=== PATIENT | female | born 1990 | race Caucasian/White ===

== ENCOUNTER 2024-10-29 11:13 | Inpatient (IN) ==
[2024-10-29] MEDS ORDERED: LIDOCAINE 1% LOCAL 20 ML VIAL INFIL PRN (11:28)
[2024-10-29] MEDS ORDERED: OXYTOCIN 30 UNITS/NSS 30 UNITS/500 ML BAG IV PRN ×2 (11:28→20:57)
--- NOTE | 2024-10-29 11:41 | History & Physical Report ---
Date of Service October 29, 2024 Assessment & Plan (1) ROM (rupture of membranes), premature: (2) with 38 completed weeks gestation: Plan admit. some contractions, but not alot or painful. gross rom. fetus category one. Discussed expectant management vs. starting pitocin now, they choose the latter. Anticipate . History of Present Illness Chief Complaint: rom Primary Care Provider: ASHLEY Vaughn Patient is a 33yowf G1 with iup at 38 3/7 weeks who presents to labor and delivery after going to the office where they confirmed rom. Notes large gush of fluid at 8:45 am, clear. +fm. and Delivery Plans Need for Rhogam d/t Rh negative blood *Given 08/23 OB Labs: Blood Type A Negative 04/15/24 Antibody Screen NEGATIVE 08/23/24 Hgb 12.5 g/dl (12.0-16.0) 08/23/24 Hct 35.8 % (37.0-47.0) L 08/23/24 MCV 96.6 fL (80.0-100.0) 04/15/24 Plt Count 174 K/uL (130-400) 04/15/24 Rubella IgG Antibody Immune (Immune) 04/15/24 Treponema pallidum Ab Negative (Negative) 08/23/24 Hep Bs Antigen Negative (Negative) 04/15/24 Hepatitis C Antibody Negative (Negative) 04/15/24 HIV 1&2 Ab/P24 Ag 4thGn Negative (Negative) 04/15/24 Glucose 1 Hr 50 gm 105 mg/dl (70-130) 08/23/24 Maternal Serum AFP 27.3 ng/mL 05/27/24 OB Optional Labs: Chlamydia trachomatis RNA Not Detected (NotDetected) 04/12/24 Neisseria gonorrhoeae RNA Not Detected (NotDetected) 04/12/24 Thyroid Stimulating Hormone (TSH) 1.690 uIu/ml (0.300-4.500) 09/21/22 Alpha Fetoprotein Triple Screen SEE NOTE 05/27/24 Labs Reviewed: carrier screening-negative--mln cfdna-low risk--mln neg afp - sln gbs neg--akh Allergies Allergy/AdvReac Type Severity Reaction Status Date / Time Penicillins Allergy Severe Anaphylaxis Verified 10/29/24 12:10 Home Medications Medication Instructions Recorded Confirmed Type digital therapeutic,ELEANOR device #1 ea 08/15/24 10/29/24 Rx clobetasol 0.05 % topical cream 1 applic topical DAILY PRN eczema 10/07/24 10/29/24 Rx #45 grams vits no.124-ferrous fum 1 tab PO DAILY 10/29/24 10/29/24 History 27 mg iron-folic acid 800 mcg tablet ( Vitamin) Patient History Medical History Abnormal Pap smear of cervix Varicella vaccination Migraine Allergic rhinitis Vitamin D deficiency Surgical History Status post colposcopy History of oral surgery 2 teeth removed from gum Family History Other No pertinent family history Denies family history of Ovarian cancer Prostate cancer Diabetes Coronary heart disease Dementia Heart disease Myocardial infarction Breast cancer Lung cancer Colorectal cancer Hypertension Colonic polyp Stroke Social History Smoking Status: Never smoker Second Hand Exposure: No; Do You Dip or Chew Tobacco: No; Hx Alcohol Use: No Hx Substance Use: No Preferred Language: Azeri Communication Ability: Effective Visual Impairment: No Limitations Hearing Ability: Normal Metal Fabricating Inspector Required: No Beliefs That Will Affect Care: None marital status: marital status details: Julienne Taylor (50) [phone] Current Living Situation: Spouse Current Living Situation Comment: current occupational status: unemployed How many Children do You have: 0 Other Information That Helps Us Care for You: No Feels Safe at Home: Yes Safety Concerns: Feels Safe At This Time Childhood Exposure to Second-Hand Smoke: No Diet: regular caffeine: No Dental Care, Regularly: Yes Physical Activity Frequency: Daily Seatbelt Use: always Sunscreen Use: Yes Assistive Devices: None 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
[2024-10-29 11:59] LABS: Hematocrit (blood only) 37.5 % (37.0-47.0); Hemoglobin 13.5 g/dl (12.0-16.0); Mean Corpuscular Hemoglobin 35.2 pg (25.0-34.0); Mean Corpuscular Volume 97.7 fL (80.0-100.0); Mean Platelet Volume 11.7 fL (9.4-12.4); Platelet Count 141 K/uL (130-400); RDW Standard Deviation 46.4 fL (36.4-46.3); Red Blood Count 3.84 M/uL (4.20-5.40); White Blood Count 10.75 K/ul (4.8-10.8)
[2024-10-29] MEDS: OXYTOCIN 30 UNITS/NSS 30 UNITS/500 ML BAG IV PRN (14:22)
[2024-10-29] MEDS: LACTATED RINGER'S 1,000 ML IV PRN (14:22)
--- NOTE | 2024-10-29 15:48 | Anesthesiology Consultation ---
Date of Service October 29, 2024 Assessment & Plan (1) Encounter for pre-operative examination: Chart Review Chart Review: Acceptable Risk for Labor Epidural History Height/Weight Height: 5 ft 3 in Weight: 63.503 kg Allergies Allergy/AdvReac Type Severity Reaction Status Date / Time Penicillins Allergy Severe Anaphylaxis Verified 10/29/24 12:10 Medications Home Medications Medication Instructions Recorded Confirmed Last Taken digital therapeutic,ELEANOR device #1 ea 08/15/24 10/29/24 Unknown clobetasol 0.05 % topical cream 1 applic topical DAILY PRN eczema 10/07/24 10/29/24 Unknown #45 grams vits no.124-ferrous fum 1 tab PO DAILY 10/29/24 10/29/24 10/28/24 08:00 27 mg iron-folic acid 800 mcg tablet ( Vitamin) Active Medications Generic Name Dose Route Start Last Admin Trade Name Freq PRN Reason Stop Dose Admin Lactated Ringer's 1,000 mls @ 125 mls/hr 10/29/24 11:28 10/29/24 15:40 Lr IV 10/31/24 11:27 999 mls/hr .Q8H PRN Infusion L&D Protocol Protocol Oxytocin 30 units in 500 mls @ 5 mls/hr 10/29/24 14:03 10/29/24 15:30 Pitocin 30 Units/Nss IV 10/31/24 14:02 0.3 units/hr .Q24H PRN 5 mls/hr Labor Induction/Augmentation Titration Protocol 0.3 UNITS/HR Past Medical History Medical History Abnormal Pap smear of cervix Varicella vaccination Migraine Allergic rhinitis Vitamin D deficiency Past Family History Family History Other No pertinent family history Denies family history of Ovarian cancer Prostate cancer Diabetes Coronary heart disease Dementia Heart disease Myocardial infarction Breast cancer Lung cancer Colorectal cancer Hypertension Colonic polyp Stroke Past Surgical History Surgical History Status post colposcopy History of oral surgery 2 teeth removed from gum Social History Smoking Status: Never smoker Do You Dip or Chew Tobacco: No Hx Alcohol Use: No Hx Substance Use: No Physical Exam Vital Signs Last Vital Signs Temp 36.9 C 10/29/24 15:00 Pulse 71 10/29/24 14:52 Resp 20 10/29/24 15:00 BP 111/74 10/29/24 14:52 Testing Laboratory Results 10/29/24 11:39
--- NOTE | 2024-10-29 15:57 | Medical Student H&P ---
Date of Service October 29, 2024 Assessment & Plan (1) with 38 completed weeks gestation: (2) ROM (rupture of membranes), premature: Plan Healthy 33-year-old at 38w3d with confirmed PROM. Reassuring heart tracing (Category I). No signs of labor at this time. No maternal complications or signs of infection. Diagnosis: Prelabor rupture of membranes (PROM) at term with reassuring status. - Anticipate normal spontaneous vaginal delivery () -Initiate Pitocin infusion, titrated beginning at 1 mU/min and escalating every 20 minutes as tolerated. - IV Fluids - Plan for epidural Monitoring: -Continue routine heart rate and contraction monitoring. Assess for signs of infection, distress, or labor progression. Maintain regular assessments of maternal vitals and pain level. Medications Administered or Active: Pitocin active, for labor induction. Lactated Ringers active, for IV hydration. Continue supportive care and monitoring throughout labor. Admission and Anticipated Discharge Date Admission Date: October 29, 2024 History of Present Illness Chief Complaint: PROM Primary Care Provider: ASHLEY Vaughn Lillian is a 33-year-old female w PMH of migraines at 72v3qms reliable LMP, presenting to L&D for premature rupture of membranes. Patient reports sudden onset of a large gush of clear fluid around 08:45 AM today, consistent with rupture of membranes. Denies vaginal bleeding, fever, or foul-smelling discharge. Notes positive movement and intermittent contractions. Evaluated in outpatient clinic earlier today where speculum exam showed pooling, positive nitrazine, and ferning on microscopy consistent with rupture. Advised to present to L&D for further evaluation. has been uncomplicated with routine care initiated at 8 weeks. No history of gestational diabetes, hypertension, or preeclampsia. Blood type A negative with Rhogam administered appropriately. GBS negative. Patient is well overall and denies pain, headache, vision changes, or RUQ pain today. Allergies Allergy/AdvReac Type Severity Reaction Status Date / Time Penicillins Allergy Severe Anaphylaxis Verified 10/29/24 12:10 Home Medications Medication Instructions Recorded Confirmed Type digital therapeutic,ELEANOR device #1 ea 08/15/24 10/29/24 Rx clobetasol 0.05 % topical cream 1 applic topical DAILY PRN eczema 10/07/24 10/29/24 Rx #45 grams vits no.124-ferrous fum 1 tab PO DAILY 10/29/24 10/29/24 History 27 mg iron-folic acid 800 mcg tablet ( Vitamin) Patient History Medical History Abnormal Pap smear of cervix Varicella vaccination Migraine Allergic rhinitis Vitamin D deficiency Surgical History Status post colposcopy History of oral surgery 2 teeth removed from gum Family History Other No pertinent family history Denies family history of Ovarian cancer Prostate cancer Diabetes Coronary heart disease Dementia Heart disease Myocardial infarction Breast cancer Lung cancer Colorectal cancer Hypertension Colonic polyp Stroke Social History Smoking Status: Never smoker Second Hand Exposure: No; Do You Dip or Chew Tobacco: No; Hx Alcohol Use: No Hx Substance Use: No Preferred Language: Cymro Communication Ability: Effective Visual Impairment: No Limitations Hearing Ability: Normal Manager Community Development Required: No Beliefs That Will Affect Care: None marital status: marital status details: Julienne Taylor (50) [phone] Current Living Situation: Spouse Current Living Situation Comment: current occupational status: unemployed How many Children do You have: 0 Other Information That Helps Us Care for You: No Feels Safe at Home: Yes Safety Concerns: Feels Safe At This Time Childhood Exposure to Second-Hand Smoke: No Diet: regular caffeine: No Dental Care, Regularly: Yes Physical Activity Frequency: Daily Seatbelt Use: always Sunscreen Use: Yes Assistive Devices: None OB History LMP: 02/03/2024 MARILUZ: 11/09/2024 by LMP Prior ectopic No history of abortions, deliveries, or live births No gHTN or GDM in this [employer] History Regular menstrual cycles with 27 day cycles; menarche at age 16 Previously on combination OCPs and progesterone-only pills for dysmenorrhea Last Pap smear: September 2023 (Negative) has a prior colpo hx, up to date on pap smears No history of STIs Review of Systems HEENT: No visual changes, headache, or congestion Cardiac: No chest pain or palpitations Respiratory: No shortness of breath or cough GI: No abdominal pain, nausea, vomiting, or constipation : No dysuria, frequency, or hematuria Musculoskeletal: No joint pain or swelling Neuro: No weakness, seizures, or new headaches Physical Exam Physical Exam: General: Alert, oriented, no acute distress CV: Regular rate and rhythm Lungs: Clear to auscultation bilaterally Abdomen: Non-tender, no guarding or rigidity, [place]: Cephalic presentation Extremities: No edema, warm, well-perfused, no calf tenderness Neuro: Grossly intact Pelvic Exam: SVE: Cervix 1-2 cm, 90% effacement and -2 station Monitoring External Monitor Monitoring: Category I tracing Baseline: 140s Moderate variability Present accelerations No decelerations Tocodynamometer Intermittent contractions Results & Data Vital Signs (Past 12 Hours) Vital Signs Temp Pulse Resp BP 10/29/24 15:00 20 10/29/24 15:00 36.9 C 10/29/24 14:52 71 10/29/24 14:52 111/74 10/29/24 14:22 75 10/29/24 14:22 106/63 10/29/24 11:32 36.9 C 10/29/24 11:26 72 118/76 Laboratory Results Urine dip (08/2024): Negative Blood type: A- GBS: Negative CBC (10/29) Within normal limits Glucose Tolerance Test: WNL STI Screens: Negative
[2024-10-29] MEDS: BUPIVACAINE 0.25% PF 30 ML VIAL ONE (16:26)
[2024-10-29] MEDS: fentANYL 2 MCG/ML BUPIVacaine 0.125%-NSS 100ML BAG ONE (16:26)
[2024-10-29] MEDS: fentaNYL citrate PF 100 MCG/2 ML VIAL ONE (16:26)
[2024-10-29] MEDS ORDERED: ePHEDrine sulfate 50 MG/ML AMP IV PRN (16:35)
[2024-10-29] MEDS ORDERED: diphenhydrAMINE 50 MG/ML VIAL IV PRN (16:35)
[2024-10-29] MEDS ORDERED: LIDOCAINE 2% MPF LOCAL 5 ML VIAL EPI PRN (16:35)
[2024-10-29] MEDS ORDERED: fentaNYL citrate PF 100 MCG/2 ML VIAL EPI PRN (16:35)
[2024-10-29] MEDS ORDERED: NALOXONE HCL 0.4 MG/1 ML VIAL/CARP IV PRN (16:35)
[2024-10-29] MEDS ORDERED: SODIUM CHLORIDE 0.9% PF INJ 10 ML VIAL EPI PRN (16:35)
[2024-10-29] MEDS ORDERED: BUPIVACAINE 0.25% PF 30 ML VIAL EPI PRN (16:35)
[2024-10-29] MEDS ORDERED: ROPIVACAINE 0.5% PF 5 MG/ML 20 ML VIAL EPI PRN (16:35)
[2024-10-29] MEDS ORDERED: fentANYL 2 MCG/ML BUPIVacaine 0.125%-NSS 100ML BAG EPI PRN (16:35)
[2024-10-29] MEDS ORDERED: ONDANSETRON INJ 2 MG/ML 2 ML VIAL IV PRN (16:35)
[2024-10-29] MEDS: LIDOCAINE 2%/EPINEPHRINE 1:200,000 20 ML PF ONE (16:36)
[2024-10-29] MEDS: SODIUM CHLORIDE 0.9% PF INJ 10 ML VIAL ONE (16:55)
[2024-10-29] MEDS: LIDOCAINE 2%/EPINEPHRINE 1:200,000 20 ML PF EPI STA (16:55)
[2024-10-29] MEDS: BUPIVACAINE 0.25% PF 30 ML VIAL EPI STA (16:55)
[2024-10-29] MEDS: fentaNYL citrate PF 100 MCG/2 ML VIAL EPI STA (16:55)
[2024-10-29] MEDS: ePHEDrine sulfate 50 MG/ML AMP ONE (16:55)
[2024-10-29] MEDS: SODIUM CHLORIDE 0.9% PF INJ 10 ML VIAL EPI STA (16:55)
--- NOTE | 2024-10-29 17:27 | Labor Progress Brief Note ---
Date of Service October 29, 2024 Subjective comfortable after epidural Assessment & Plan (1) ROM (rupture of membranes), premature: Plan continue current plan. Overall category one fetus. anticipate . Admission and Anticipated Discharge Date Admission Date: October 29, 2024 Physical Exam Physical Exam: cx--4-5/95/-2 toco--q2-3min efm--140s wtih mod variability, +accels, occasional small variable Results & Data Vital Signs (Past 12 Hours) Vital Signs Temp Pulse Resp BP Pulse Ox 10/29/24 17:23 99 10/29/24 17:23 62 10/29/24 17:20 90 10/29/24 17:20 68 10/29/24 17:18 99 10/29/24 17:18 73 10/29/24 17:16 64 10/29/24 17:16 105/66 10/29/24 17:13 100 10/29/24 17:13 73 10/29/24 17:08 100 10/29/24 17:08 69 10/29/24 17:08 90 10/29/24 17:08 72 10/29/24 17:03 100 10/29/24 17:03 63 10/29/24 17:01 58 L 10/29/24 17:01 103/58 L 10/29/24 17:00 16 10/29/24 17:00 16 10/29/24 16:58 100 10/29/24 16:58 62 10/29/24 16:55 36.4 C L 10/29/24 16:53 100 10/29/24 16:53 62 10/29/24 16:48 100 10/29/24 16:48 67 10/29/24 16:45 67 10/29/24 16:45 106/55 L 10/29/24 16:43 100 10/29/24 16:43 63 10/29/24 16:40 63 10/29/24 16:40 98/62 L 10/29/24 16:38 100 10/29/24 16:38 71 10/29/24 16:35 20 10/29/24 16:35 20 10/29/24 16:35 66 10/29/24 16:35 100/63 10/29/24 16:33 100 10/29/24 16:33 67 10/29/24 16:33 62 10/29/24 16:33 99/62 L 10/29/24 16:31 66 10/29/24 16:31 102/62 10/29/24 16:29 61 10/29/24 16:29 99/61 L 10/29/24 16:28 100 10/29/24 16:28 65 10/29/24 16:27 56 L 10/29/24 16:27 98/60 L 10/29/24 16:25 20 10/29/24 16:25 20 10/29/24 16:25 214 H 10/29/24 16:25 99/62 L 10/29/24 16:23 100 10/29/24 16:23 68 10/29/24 16:23 67 10/29/24 16:23 91/52 L 10/29/24 16:21 74 10/29/24 16:21 97/52 L 10/29/24 16:21 92 10/29/24 16:21 66 10/29/24 16:20 20 10/29/24 16:20 20 10/29/24 16:18 99 10/29/24 16:18 76 10/29/24 16:13 99 10/29/24 16:13 67 10/29/24 16:08 100 10/29/24 16:08 66 10/29/24 16:03 100 10/29/24 16:03 69 10/29/24 16:02 75 10/29/24 16:02 106/68 10/29/24 15:00 20 10/29/24 15:00 36.9 C 20 10/29/24 14:52 71 10/29/24 14:52 111/74 10/29/24 14:22 75 10/29/24 14:22 106/63 10/29/24 11:32 36.9 C 20 10/29/24 11:26 72 118/76 Coding Level of Care Code None Diagnoses ROM (rupture of membranes), premature O42.90
[2024-10-29] MEDS: miSOPROStoL 200 MCG TAB PR ONE (19:56)
--- NOTE | 2024-10-29 20:20 | Delivery Summary ---
Vaginal Delivery Summary Date of Service October 29, 2024 Vaginal Delivery Summary and 2nd Degree LAC (bilateral labial) Pre-operative Diagnosis: at 38 weeks srom Post-operative Diagnosis: same Procedure: epidural pitocin augmentation second degree laceration and bilateral labial lacerations and repair EBL: 631cc Anesthesia: epidural Procedure: The patient prsented to labor and delivery from the office with gross srom. Chose to begin with pitocin. Got epidural. Progressed to c/c/+2. The patient pushed for less than 15 minutes to deliver a viable male infant in erin position. The nose and mouth were bulb suctioned on the perineum and the re st of the was then delivered without difficulty. The baby was vigorous. The nose and mouth were again bulb suctioned and the infant was placed in the maternal abdomen for drying and attention. Cord was clamped and cut at one minute of life. Cord blood and segment obtained. Placenta delivered spontaneous, intact with a three vessel cord. Cervix/sulci/rectum were intact. A second degree perineal laceration and bilateral labial lacs repaired in the normal standard fashion. Hemostasis obtained with dilute pitocin and fundal massage, rectal cytotec. Apgars were 8/8. Mother and baby doing well at the end of the delivery. [facility] Vaginal Delivery Charge Delivery Type Details: and 2nd Degree LAC (bilateral labial)
[2024-10-29] MEDS ORDERED: oxyCODONE/ACETAMINOPHEN 5mg/325mg TAB PO PRN (20:57)
[2024-10-29] MEDS ORDERED: bisacodyL 10 MG SUPP PR PRN (20:57)
[2024-10-29] MEDS ORDERED: HYDROCORTISONE ACETATE 25 MG SUPP PR PRN (20:57)
[2024-10-29] MEDS: DOCUSATE SODIUM 100 MG CAP PO SCH (21:05)
[2024-10-29] MEDS: BENZOCAINE 20% SPRY 85 APPLN/85 GM CAN EXT PRN (21:05)
[2024-10-29] MEDS: DIPHTHER/TETAN/PERTUS Vaccine (Tdap, Adol/Adult) 0.5mL IM ONE (21:15)
--- NOTE | 2024-10-29 21:58 | Anesthesia Procedure Note ---
Date of Service October 29, 2024 Anesthesia Post Epidural Note Vital Signs Vital Signs: Temp Pulse Resp BP Pulse Ox 36.7 C 93 H 16 122/57 L 100 10/29/24 19:00 10/29/24 21:44 10/29/24 21:13 10/29/24 21:44 10/29/24 20:13 Notes Mental Status: alert / awake / arousable and participated in evaluation Nausea / Vomiting: adequately controlled Pain: adequately controlled Airway Patency, RR, SpO2: stable & adequate BP & HR: stable & adequate Hydration State: stable & adequate Neuraxial Anesthesia: was administered and sensory block is resolving Anesthetic Complications: no major complications apparent Epidural: Removed without complications and With tip intact
[2024-10-30] MEDS: IBUPROFEN 600 MG TAB PO PRN (02:34)
[2024-10-30 06:49] LABS: Hematocrit (blood only) 31.4 % (37.0-47.0); Hemoglobin 10.9 g/dl (12.0-16.0)
--- NOTE | 2024-10-30 07:04 | Obstetrical Progress Note ---
Date of Service October 30, 2024 Assessment & Plan (1) Encounter for assessment: Plan continue routine care. Overall doing well. Day #:: 1 Subjective Ambulation: ambulating normally Voiding: no voiding problems Passing Gas:: Yes Diet Tolerance:: regular diet Lochia:: Small Feeding Type:: bottle feeding Bottom sore but pain meds help. Physical Exam Constitutional WD/WN, vitals as above Respiratory normal respiratory effort, lungs clear to auscultation Cardiovascular RRR, no murmur, no edema Extremities: no calf tenderness and no edema Gastrointestinal (Abdomen) soft, appro tender, nd, ff/nt at u Psychiatric A+Ox3, euthymic affect Results & Data Vital Signs (Past 12 Hours) Vital Signs Temp Pulse Pulse Resp BP BP Pulse Ox 10/30/24 04:00 37.3 C 60 16 118/78 99 10/29/24 23:00 36.9 C 72 16 117/75 97 10/29/24 22:15 36.9 C 16 10/29/24 22:13 81 10/29/24 22:13 121/68 10/29/24 21:58 80 10/29/24 21:58 111/66 10/29/24 21:44 93 H 10/29/24 21:44 122/57 L 10/29/24 21:28 84 10/29/24 21:28 126/60 10/29/24 21:13 16 10/29/24 21:13 85 10/29/24 21:13 116/65 10/29/24 20:58 18 10/29/24 20:58 93 H 10/29/24 20:58 115/66 10/29/24 20:43 16 10/29/24 20:43 16 10/29/24 20:43 71 10/29/24 20:43 112/61 10/29/24 20:28 16 10/29/24 20:28 102/61 10/29/24 20:13 18 10/29/24 20:13 100 10/29/24 20:13 75 10/29/24 20:13 107/58 L 10/29/24 20:08 100 10/29/24 20:08 78 10/29/24 20:03 100 10/29/24 20:03 83 10/29/24 19:58 100 10/29/24 19:58 88 10/29/24 19:53 99 10/29/24 19:53 97 H 10/29/24 19:48 100 10/29/24 19:48 88 10/29/24 19:43 99 10/29/24 19:43 85 05 19:38 100 10/29/24 19:38 106 H 10/29/24 19:33 100 10/29/24 19:33 87 10/29/24 19:30 91 H 10/29/24 19:30 121/78 05 19:28 100 05 19:28 88 10/29/24 19:23 100 10/29/24 19:23 85 10/29/24 19:18 100 10/29/24 19:18 87 10/29/24 19:13 99 10/29/24 19:13 82 10/29/24 19:08 100 10/29/24 19:08 80 10/29/24 19:03 99 10/29/24 19:03 82 O2 Del Method 10/30/24 04:00 Room Air 10/29/24 23:00 Room Air 10/29/24 22:15 10/29/24 22:13 10/29/24 22:13 10/29/24 21:58 10/29/24 21:58 10/29/24 21:44 10/29/24 21:44 10/29/24 21:28 10/29/24 21:28 10/29/24 21:13 10/29/24 21:13 10/29/24 21:13 10/29/24 20:58 10/29/24 20:58 10/29/24 20:58 10/29/24 20:43 05 20:43 05 20:43 05 20:43 10/29/24 20:28 10/29/24 20:28 10/29/24 20:13 10/29/24 20:13 10/29/24 20:13 10/29/24 20:13 10/29/24 20:08 10/29/24 20:08 10/29/24 20:03 10/29/24 20:03 10/29/24 19:58 10/29/24 19:58 10/29/24 19:53 10/29/24 19:53 10/29/24 19:48 10/29/24 19:48 10/29/24 19:43 10/29/24 19:43 10/29/24 19:38 10/29/24 19:38 10/29/24 19:33 10/29/24 19:33 10/29/24 19:30 10/29/24 19:30 10/29/24 19:28 10/29/24 19:28 10/29/24 19:23 10/29/24 19:23 10/29/24 19:18 10/29/24 19:18 10/29/24 19:13 10/29/24 19:13 10/29/24 19:08 10/29/24 19:08 10/29/24 19:03 10/29/24 19:03
[2024-10-30] MEDS: PRENATAL VITAMIN 1 TAB PO SCH (07:38)
[2024-10-30] MEDS: ACETAMINOPHEN 325 MG TAB PO PRN (12:20)
[2024-10-30] MEDS: bisacodyL 5 MG TABEC PO SCH (20:24)
--- NOTE | 2024-10-31 06:24 | Obstetrical Progress Note ---
Date of Service October 31, 2024 Assessment & Plan (1) Encounter for assessment: (2) Perineal laceration during delivery: Plan Lillian is a 33yo PPD 2 s/p with 2nd deg perineal laceration. Doing well. Continue routine pp care. Encourage ambulation. Pain control with ibuprofen Followup in 6wks Admission and Anticipated Discharge Date Admission Date: October 29, 2024 Supervising Physician Co-Signing Physician Notes Resident Physician Supervision Note: I interviewed and examined the patient. Discussed with Dr. Weiss and agree with findings and plan as documented in the note. Any exceptions or clarifications are listed here: PP2 s/p , doing well. stable for dc today Documented By: Shanta Hyde MD Subjective Lillian is a 33yo PPD 2 s/p Feels well Ambulation: yes Void: yes Gas: yes Lochia: small Diet: tolerating Feeding plan: formula Sx: none Physical Exam Physical Exam: Gen: no acute distress, appearing well CV: RRR, no m/r/g Resp: clear to auscultation b/l GI/Abd: +BS, fundus firm 1cm below lvl of umbilicus, abd mild soreness to palpation LE: no edema, nontender to palpation Results & Data Vital Signs (Past 12 Hours) Vital Signs Temp Pulse Resp BP Pulse Ox O2 Del Method 10/30/24 23:30 37.0 C 64 18 119/76 97 Room Air 10/30/24 20:10 37.0 C 74 20 111/76 98 Room Air Resident Activity Tracking Resident Involvement: Resident Care Provided Care Provided: OB Delivery (1) Encounter for assessment visit type: exam and care immediately after delivery Qualified Code(s): Z39.0 - Encounter for care and examination of mother immediately after delivery (2) Perineal laceration during delivery Perineal laceration degree: second degree Qualified Code(s): O70.1 - Second degree perineal laceration during delivery
[2024-10-31 07:22] VITALS: BP 119/78; PULSE 87; RESP 16; TEMP 98.8; O2SAT 98
== END 2024-10-31 11:15 | disposition home or self-care (01) | DRG 807 ==
LOC: OPB 11:13 → 4S1 11:16 → 4E2 23:16